=== PATIENT | male | born 1980 | race Caucasian/White ===

== ENCOUNTER 2023-11-04 21:39 | Emergency (ER) | payer SELFPAY ==
[~2023-11-04] VITALS: Ht 162.6 cm; Wt 77.1 kg
[2023-11-04 21:45] VITALS: BP 95/90; PULSE 73; RESP 16; TEMP 98.8; O2SAT 100
== END 2023-11-05 00:13 ==
LOC: MED 21:39
DX: S09.90XA Unspecified injury of head, initial encounter (principal); S00.33XA Contusion of nose, initial encounter; S20.412A Abrasion of left back wall of thorax, initial encounter; S80.812A Abrasion, left lower leg, initial encounter; F10.129 Alcohol abuse with intoxication, unspecified; V09.9XXA Pedestrian injured in unspecified transport accident, initial encounter; Y93.I9 Activity, other involving external motion; Y92.89 Other specified places as the place of occurrence of the external cause; Y99.8 Other external cause status
CPT/HCPCS: 70450; 71045; 99284; Q0092